=== PATIENT | female | born 1995 | race African-American/Black ===

== ENCOUNTER 2023-01-09 12:26 | Inpatient (IN) | payer OTHER ==
[2023-01-09] MEDS: ELECTROLYTE-148 SOLN 1,000 ML IV SCH (13:00)
[2023-01-09 13:54] LABS: BASO % 0.5 % (0-2.0); EOS % 0.3 % (0-4.5); HEMATOCRIT 34.3 % (32.4-45.2); HEMOGLOBIN 11.6 GM/dL (10.7-15.3); LYMPH % 20.5 % (8-40); MCH 28.8 pg (25.7-33.7); MCHC 33.9 g/dl (32.0-36.0); MEAN CELL VOLUME 84.7 fl (80-96); MEAN PLT VOLUME 8.9 fl (7.5-11.1); MONO % 5.1 % (3.8-10.2); NEUT % 73.6 % (42.8-82.8); PLATELET COUNT 211 10^3/uL (134-434); RBC 4.05 M/mm3 (3.60-5.2); RDW 14.9 % (11.6-15.6); WHITE BLOOD COUNT 8.9 K/mm3 (4.0-10.0)
[2023-01-09 14:10] VITALS: BMI 38.2
[2023-01-09 15:08] LABS: INR 1.01 (0.83-1.09); PROTHROMBIN TIME (PATIENT) 11.7 SEC (9.7-13.0)
[2023-01-09 15:09] LABS: HIV INTERPRETATION NEGATIVE (NEGATIVE)
[2023-01-09 15:11] LABS: ACTIVATED PTT 26.9 SECONDS (25.2-36.5)
[2023-01-09 15:23] LABS: BLOOD UREA NITROGEN 10.6 mg/dL (7-18); CALCIUM 8.6 mg/dL (8.5-10.1)
[2023-01-09 15:27] LABS: CREATININE 0.6 mg/dL (0.55-1.3)
[2023-01-09] MEDS ORDERED: OXYTOCIN 30 UNITS in 0.9% NS 30 UNIT/500 ML INFUS.BAG IVPB ONE (15:39)
[2023-01-09] MEDS: OXYTOCIN 30 UNITS in 0.9% NS 30 UNIT/500 ML INFUS.BAG IVPB SCH (16:00)
[2023-01-09] MEDS ORDERED: OXYTOCIN 20 UNITS in 0.9% NS 20 UNIT/1,000 ML INFUS.BAG IV ONE ×2 (18:34→18:36)
[2023-01-09] MEDS ORDERED: LIDOCAINE HCL 1% PRESERVATIVE FREE - 30ML VIAL ONE (18:36)
[2023-01-09] MEDS ORDERED: ACETAMINOPHEN 325 MG TABLET (FP) PO PRN (19:22)
[2023-01-09] MEDS ORDERED: oxyCODONE HCL 5 MG TABLET PO PRN (19:22)
[2023-01-09] MEDS ORDERED: BENZOCAINE 20% 57 GM BOTTLE TP PRN (19:22)
[2023-01-09] MEDS ORDERED: METHYLERGONOVINE MALEATE 0.2 MG/1 ML AMP IM PRN (19:22)
[2023-01-09] MEDS ORDERED: WITCH HAZEL 50% (TUCKS) 40 PAD/JAR PAD TP PRN (19:22)
[2023-01-09] MEDS ORDERED: BENZOCAINE 28 GM HEMORRHOIDAL OINTMENT TP PRN (19:22)
[2023-01-09] MEDS ORDERED: BISACODYL 10 MG SUPP.RECT RC PRN (19:22)
[2023-01-09] MEDS ORDERED: OXYTOCIN 20 UNITS in 0.9% NS 20 UNIT/1,000 ML INFUS.BAG IV SCH (19:30)
[2023-01-09] MEDS ORDERED: ACETAMINOPHEN 325 MG TABLET (FP) ONE (20:06)
[2023-01-09] MEDS: IBUPROFEN 600 MG TABLET (FP) PO PRN (21:57)
[2023-01-10] MEDS: IBUPROFEN 600 MG TABLET (FP) PO PRN ×3 (02:38→21:13)
[2023-01-10 07:50] LABS: BASO % 0.4 % (0-2.0); EOS % 0.6 % (0-4.5); HEMATOCRIT 33.4 % (32.4-45.2); HEMOGLOBIN 11.6 GM/dL (10.7-15.3); LYMPH % 19.5 % (8-40); MCH 29.2 pg (25.7-33.7); MCHC 34.6 g/dl (32.0-36.0); MEAN CELL VOLUME 84.4 fl (80-96); MEAN PLT VOLUME 8.9 fl (7.5-11.1); MONO % 5.5 % (3.8-10.2); PLATELET COUNT 184 10^3/uL (134-434); RBC 3.96 M/mm3 (3.60-5.2); RDW 14.8 % (11.6-15.6); WHITE BLOOD COUNT 11.2 K/mm3 (4.0-10.0)
[2023-01-10] MEDS: PRENATAL VITAMINS W/ FOLIC ACID TABLET (FP) PO SCH (10:10)
[2023-01-10] MEDS: ELECTROLYTE-148 SOLN 1,000 ML IV SCH (19:48)
[2023-01-10] MEDS: OXYTOCIN 30 UNITS in 0.9% NS 30 UNIT/500 ML INFUS.BAG IVPB SCH (19:51)
[2023-01-10] MEDS ORDERED: SENNOSIDES/DOCUSATE COMBO (SENNA PLUS) TABLET (UD) PO PRN (22:00)
[2023-01-11] MEDS: IBUPROFEN 600 MG TABLET (FP) PO PRN ×3 (01:14→09:54)
[2023-01-11] MEDS: PRENATAL VITAMINS W/ FOLIC ACID TABLET (FP) PO SCH (09:54)
[2023-01-11 10:38] VITALS: BP 116/83; PULSE 69; RESP 16; TEMP 97.8
== END 2023-01-11 11:35 | disposition home or self-care (01) | DRG 560 ==
LOC: JLDR 12:26 → J3W 21:21
PROVIDERS: ADMIT Obstetrics & Gynecology; ATTEND Obstetrics & Gynecology
PROC: 10E0XZZ Delivery of Products of Conception, External Approach (ICD-10-PCS; principal; 2023-01-09)
DX: O80 Encounter for full-term uncomplicated delivery (principal); Z3A.39 39 weeks gestation of pregnancy; Z37.0 Single live birth
CPT/HCPCS: 36415; 80048; 85025; 85610; 85730; 86780; 86850; 86900; 86901; 87389; C9803-CS; U0003; U0005

== ENCOUNTER 2023-02-04 20:19 | Emergency (ER) | payer OTHER ==
[2023-02-04 20:36] VITALS: TEMP 97.9; BMI 37.8
[2023-02-04] MEDS ORDERED: LABETALOL HCL 5 MG/1 ML (100MG/20 ML VIAL) IVPUSH ONE (21:35)
[2023-02-04 21:39] LABS: EOS % 3.7 % (0-4.5); HEMATOCRIT 39.5 % (32.4-45.2); HEMOGLOBIN 13.8 GM/dL (10.7-15.3); LYMPH % 50.3 % (8-40); MCH 29.1 pg (25.7-33.7); MEAN PLT VOLUME 8.8 fl (7.5-11.1); MONO % 5.7 % (3.8-10.2); NEUT % 39.3 % (42.8-82.8); PLATELET COUNT 253 10^3/uL (134-434); RBC 4.76 M/mm3 (3.60-5.2); RDW 14.4 % (11.6-15.6)
[2023-02-04 21:46] LABS: INR 1.03 (0.83-1.09)
[2023-02-04 21:48] LABS: EPI CELLS >36 /uL (0-25.1); HYALINE CASTS 1 /uL (0-3.1); PH,URINE 6.5 (5.0-8.0); URINE APPEARANCE CLOUDY; URINE BACTERIA 39 /uL (0-1359); URINE BILIRUBIN NEGATIVE (NEGATIVE); URINE COLOR RED; URINE GLUCOSE (UA) NEGATIVE (NEGATIVE); URINE KETONE NEGATIVE (NEGATIVE); URINE LEUK ESTERASE 2+ (NEGATIVE); URINE NITRITE NEGATIVE (NEGATIVE); URINE PROTEIN TRACE (NEGATIVE); URINE RBC 12514 /uL (0-23.9); URINE UROBILINOGEN 0.2 mg/dL (0.2-1.0); URINE WBC 178 /uL (0-25.8)
[2023-02-04 21:49] LABS: ACTIVATED PTT 30.3 SECONDS (25.2-36.5)
[2023-02-04] MEDS ORDERED: LABETALOL HCL 20 MG/4 ML VIAL ONE (21:56)
[2023-02-04] MEDS ORDERED: ACETAMINOPHEN 1000 MG/100 ML BAG IVPB ONE (22:01)
[2023-02-04 22:02] LABS: ALBUMIN 3.6 g/dl (3.4-5.0); BLOOD UREA NITROGEN 13.5 mg/dL (7-18)
[2023-02-04 22:04] LABS: PHOSPHOROUS 3.7 mg/dL (2.5-4.9)
[2023-02-04 22:05] LABS: CREATININE 0.8 mg/dL (0.55-1.3)
[2023-02-04 22:06] LABS: BILIRUBIN,TOTAL 0.2 mg/dL (0.2-1)
[2023-02-04 22:07] LABS: TOT PROT 7.8 g/dl (6.4-8.2)
[2023-02-04 22:10] LABS: N-TERMINAL BNP 127.2 pg/ml (5-125)
[2023-02-04] MEDS ORDERED: ACETAMINOPHEN INJECTION 100 ML IVPB ONE (22:17)
[2023-02-05] MEDS ORDERED: LABETALOL HCL 5 MG/1 ML (100MG/20 ML VIAL) IVPUSH ONE ×2 (01:05→02:12)
[2023-02-05] MEDS ORDERED: LABETALOL HCL 20 MG/4 ML VIAL ONE (01:11)
[2023-02-05] MEDS ORDERED: MAGNESIUM SULFATE 20GM/500ML - 20 GM/500 ML INFUS.BAG IV SCH (01:15)
[2023-02-05 02:40] VITALS: BP 155/96; PULSE 80; RESP 20
== END 2023-02-05 02:40 | disposition short-term general hospital (02) ==
LOC: JER 20:19
PROC: 3E033GC Introduction of Other Therapeutic Substance into Peripheral Vein, Percutaneous Approach (ICD-10-PCS; principal; 2023-02-04)
PROC: 3E033GC Introduction of Other Therapeutic Substance into Peripheral Vein, Percutaneous Approach (ICD-10-PCS; 2023-02-04)
PROC: 3E033GC Introduction of Other Therapeutic Substance into Peripheral Vein, Percutaneous Approach (ICD-10-PCS; 2023-02-04)
PROC: 3E033GC Introduction of Other Therapeutic Substance into Peripheral Vein, Percutaneous Approach (ICD-10-PCS; 2023-02-05)
PROC: 3E033GC Introduction of Other Therapeutic Substance into Peripheral Vein, Percutaneous Approach (ICD-10-PCS; 2023-02-05)
DX: O99.350 Diseases of the nervous system complicating pregnancy, unspecified trimester (principal); O14.90 Unspecified pre-eclampsia, unspecified trimester; R51.9 Headache, unspecified; O16.9 Unspecified maternal hypertension, unspecified trimester; Z3A.00 Weeks of gestation of pregnancy not specified; Z20.822 Contact with and (suspected) exposure to COVID-19
CPT/HCPCS: 36415; 70450-TC; 71045-TC-FY; 80053; 81003; 82570; 83615; 83690; 83735; 83880; 84100; 84156; 84484; 85025; 85384; 85610; 85730; 87086; 93005; 93010; 99285-25; C9803-CS; U0003; U0005